=== PATIENT | female | born 1975 | race African-American/Black ===

== ENCOUNTER 2016-10-26 14:47 | Emergency (ER) | payer OTHER ==
[2016-10-26 14:52] VITALS: BP 167/110; BMI 40.0
[2016-10-26] MEDS ORDERED: TORADOL 60 MG VIAL IM ONE (17:23)
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
[2016-10-26] MEDS ORDERED: TORADOL 60 MG VIAL ONE (17:47)
--- NOTE | 2016-10-26 18:13 | RAD ---
HISTORY: Pain Study: Three views of the right shoulder Comparison: None Findings: No evidence of acute displaced fracture dislocation is identified. The glenohumeral articulation is maintained. Degenerative changes of the humeral head, glenoid, and acromioclavicular joint are noted . IMPRESSION: 1. Degenerative changes as noted above. Reported By:
--- NOTE | 2016-10-26 18:14 | RAD ---
HISTORY: Pain Study: Three views of the right hand Comparison: None Findings: No evidence of acute displaced fracture or dislocation is identified. No aggressive osseous lesions are seen. No radiopaque foreign bodies are noted. IMPRESSION: 1. No evidence of acute osseous abnormality is appreciated. Reported By:
--- NOTE | 2016-10-26 18:16 | RAD ---
HISTORY: Pain Study: Two views of the right forearm Comparison: None Findings: No evidence of acute displaced fracture or dislocation is identified. No aggressive osseous lesions are seen. No radiopaque foreign bodies are noted. IMPRESSION: No evidence of acute osseous abnormality is appreciated. Reported By:
== END 2016-10-26 18:36 | disposition home or self-care (01) ==
LOC: ER 15:08
DX: S43.401A Unspecified sprain of right shoulder joint, initial encounter (principal); S40.021A Contusion of right upper arm, initial encounter; S63.692A Other sprain of right middle finger, initial encounter; V87.7XXA Person injured in collision between other specified motor vehicles (traffic), initial encounter
CPT/HCPCS: 73030; 73090; 73130; 96372; 99282; 99283; J1885